=== PATIENT | male | born 1955 | race Caucasian/White ===

== ENCOUNTER 2019-05-11 06:35 | Day surgery (SDC) | payer BC ==
[~2019-05-11 06:35] MED LIST: Lactated Ringers 1,000 ML IV SCH; Sodium Chloride 0.9% 10 ML SDV IV PRN; Sodium Chloride 0.9% 10 ML Syringe FLUSH PRN; Sodium Chloride 0.9% 2.5 ML Syringe FLUSH PRN; ceFAZolin 2 GM in Premix Bag 1 BAG IV ONE
[2019-05-11] MEDS ORDERED: Propofol 200 MG/20 ML SDV ONE (06:58)
[2019-05-11] MEDS ORDERED: Midazolam 1 MG/ML 2 ML SDV ONE (06:59)
[2019-05-11] MEDS ORDERED: fentaNYL 250 MCG/5 ML SDV ONE (06:59)
[2019-05-11] MEDS ORDERED: Rocuronium 100 MG/10 ML Syringe ONE (07:00)
[2019-05-11] MEDS ORDERED: Ketorolac 30 MG/ML SDV ONE (07:00)
[2019-05-11] MEDS ORDERED: Dexamethasone 4 MG/ML 5 ML MDV ONE (07:00)
[2019-05-11] MEDS ORDERED: Ondansetron 4 MG/2 ML SDV ONE (07:00)
[2019-05-11] MEDS ORDERED: Glycopyrrolate 0.2 MG/ML SDV ONE (07:00)
[2019-05-11] MEDS ORDERED: Lidocaine 2% 5 ML SDV ONE (07:00)
[2019-05-11] MEDS ORDERED: Sugammadex Sodium 200 MG/2 ML VIAL ONE (07:01)
--- NOTE | 2019-05-11 07:06 | PCM.PREANE ---
Preanesthetic Assessment - Anesthesia/Transfusion/Family Hx Anesthesia History: Prior Anesthesia Without Reaction Other Type of Anesthesia Reaction Comment: Denies any known problems Family History of Anesthesia Reaction: No Transfusion History: No Prior Transfusion(s) Intubation History: Unknown - Review of Systems General: No Symptoms Pulmonary: No Symptoms Cardiovascular: No Symptoms Gastrointestinal: No Symptoms Neurological: No Symptoms Other: Reports: None - Physical Assessment Height: 6 ft Weight: 107.955 kg ASA Class: 2 Mental Status: Alert & Oriented x3 Airway Class: Mallampati = 2 Dentition: Reports: Normal Dentition (small chip upper front incisor) Thyro-Mental Finger Breadths: 3 Mouth Opening Finger Breadths: 3 ROM/Head Extension: Limited/Partial Lungs: Clear to Auscultation, Normal Respiratory Effort Cardiovascular: Regular Rate, Regular Rhythm - Allergies Allergies/Adverse Reactions: Allergies Allergy/AdvReac Type Severity Reaction Status Date / Time oxycodone Allergy Nausea and Verified 05/05/19 11:36 Vomiting - Blood Blood Available: No - Anesthesia Plan Pre-Op Medication Ordered: None - Acknowledgements Anesthesia Type Planned: General Anesthesia Pt an Appropriate Candidate for the Planned Anesthesia: Yes Alternatives and Risks of Anesthesia Discussed w Pt/Guardian: Yes Pt/Guardian Understands and Agrees with Anesthesia Plan: Yes PreAnesthesia Questionnaire Cardiovascular History: Reports: High Cholesterol Neurological History: Reports: Concussion Endocrine/Metabolic History: Reports: Obesity/BMI 30+ Oncologic (Cancer) History: Reports: Basal Cell Carcinoma - Past Surgical History Head Surgeries/Procedures: Reports: None Male Surgical History: Reports: Vasectomy Musculoskeletal Surgical History: Reports: Arthroscopic Knee, Knee Replacement ( rt. knee 2011), Shoulder Surgery Other Musculoskeletal Surgeries/Procedures:: right TKA, hx of left RTCR Oncologic Surgical History: Reports: Other (See Below) Other Oncologic Surgeries/Procedures: basal cell removed from face Dermatological Surgical History: Reports: Skin Biopsy - SUBSTANCE USE Smoking Status *Q: Never Smoker Recreational Drug Use History: No - HOME MEDS Home Medications: Home Meds Simvastatin [Zocor] 40 mg PO BEDTIME 11/30/13 [History] - CURRENT (IN HOUSE) MEDS Current Meds: Current Medications Lactated Ringer's (Ringers, Lactated) 1,000 mls @ 125 mls/hr IV ASDIRECTED SADA Sodium Chloride (Saline Flush) 10 ml FLUSH ASDIRECTED PRN PRN Reason: Keep Vein Open Sodium Chloride (Saline Flush) 2.5 ml FLUSH ASDIRECTED PRN PRN Reason: Keep Vein Open Sodium Chloride (Normal Saline) 10 ml IV ASDIRECTED PRN PRN Reason: IV Use Discontinued Medications Fentanyl (Sublimaze) Confirm Administered Dose 250 mcg .ROUTE .STK-MED ONE Stop: 05/11/19 07:00 Cefazolin Sodium/Dextrose 2 gm (/ Premix) 50 mls @ 100 mls/hr IV ONETIME ONE Stop: 05/10/19 11:17 Midazolam HCl (Versed 1 Mg/Ml) Confirm Administered Dose 2 mg .ROUTE .STK-MED ONE Stop: 05/11/19 07:00 Propofol (Diprivan 20 Ml) Confirm Administered Dose 200 mg .ROUTE .STK-MED ONE Stop: 05/11/19 06:59
[2019-05-11] MEDS ORDERED: Bupivacaine 0.5% 30 ML SDV ONE (07:20)
[2019-05-11] MEDS ORDERED: Sodium Chloride 0.9% 20 ML ONE (08:07)
[2019-05-11] MEDS ORDERED: ceFAZolin 1 GM Vial ONE (08:07)
[2019-05-11] MEDS ORDERED: Phenylephrine/Normal Saline 100 MCG/ML 10 ML Syringe ONE (08:13)
[2019-05-11] MEDS ORDERED: Octyl 2-Cyanoacrylate 1 Tube ONE (08:30)
--- NOTE | 2019-05-11 08:52 | PCM.OPNOTE ---
- General Post-Op/Procedure Note Date of Surgery/Procedure: 05/11/19 Operative Procedure(s): Umbilical hernia repair Findings: 2mm defect just to the left of the umbilical stalk Pre Op Diagnosis: Umbilical hernia, incarcerated Post-Op Diagnosis: same Anesthesia Technique: MAC Primary Surgeon: Sharon Becerra Fluid Replacement, Intraop: 700 Condition: Good
--- NOTE | 2019-05-11 09:06 | PCM.POSTAN ---
POST ANESTHESIA ASSESSMENT - MENTAL STATUS Mental Status: Alert, Oriented - VITAL SIGNS Vital Signs: Last Vital Signs Temp 37.5 C 05/11/19 08:50 Pulse 84 05/11/19 09:00 Resp 11 L 05/11/19 09:00 BP 111/74 05/11/19 09:00 Pulse Ox 90 L 05/11/19 09:00 - RESPIRATORY Respiratory Status: Respiratory Rate WNL, Airway Patent, O2 Saturation Stable - CARDIOVASCULAR CV Status: Pulse Rate WNL, Blood Pressure Stable - GASTROINTESTINAL GI Status: No Symptoms - POST OP HYDRATION Hydration Status: Adequate & Stable
--- NOTE | 2019-05-11 09:51 | PCM48HPAN ---
Post Anesthesia Note - EVALUATION WITHIN 48HRS OF ANESTHETIC Vital Signs in Normal Range: Yes Patient Participated in Evaluation: Yes Respiratory Function Stable: Yes Airway Patent: Yes Cardiovascular Function Stable: Yes Hydration Status Stable: Yes Pain Control Satisfactory: Yes Nausea and Vomiting Control Satisfactory: Yes Mental Status Recovered: Yes Vital Signs: Last Vital Signs Temp 37.5 C 05/11/19 08:50 Pulse 81 05/11/19 09:25 Resp 14 05/11/19 09:25 BP 111/68 05/11/19 09:25 Pulse Ox 90 L 05/11/19 09:25 - COMMENTS/OBSERVATIONS Free Text/Narrative:: No anesthesia problems
--- NOTE | 2019-05-11 18:45 | OR ---
SURGEON: SHARON BECERRA MD DATE OF PROCEDURE: 05/11/2019 PREOPERATIVE DIAGNOSIS: Umbilical hernia, incarcerated. POSTOPERATIVE DIAGNOSIS: Umbilical hernia, incarcerated. PROCEDURE PERFORMED: Umbilical hernia repair. PRIMARY SURGEON: Sharon Becerra MD. ANESTHESIA: General endotracheal anesthesia. FLUIDS: 700 mL crystalloid. ESTIMATED BLOOD LOSS: 2 mL. FINDINGS: 2 cm periumbilical fascial defect containing incarcerated preperitoneal fat. COMPLICATIONS: None. INDICATIONS: The patient is a 64-year-old male with a symptomatic umbilical hernia. I explained the need for repair. I described the procedure, expected perioperative course, and risks including bleeding, infection, or damage to surrounding structures. The patient verbalized understanding and wishes to proceed. PROCEDURE IN DETAIL: The patient was brought into the OR and placed on the OR table in supine position. A time-out was completed verifying the patient's name, age, date of , allergies, and procedure to be performed. General endotracheal anesthesia was induced. The abdomen was prepped and draped in usual standard fashion. I anesthetized around the umbilicus with 0.5% Marcaine plain. A circular incision was made along the left lateral umbilical fold using a 15 blade. Cautery was then used to dissect down to the level of the subcutaneous fat. I immediately encountered a small hernia sac just to the left of the umbilical stalk. This was dissected free of the surrounding structures using electrocautery. It was cleared all the way down to the fascia. The fascial defect was extremely small measured only 2 mm in size. I attempted to reduce the preperitoneal fat back into the abdomen but was unable to do so. I then transected the hernia sac and its contents at the level of the fascia using cautery. It was passed off the field and labeled as umbilical hernia sac. The fascial defect was then closed with a [id number] Ethibond suture. I then explored around the umbilical stalk to ensure that there was no further evidence of hernia defect. None was discovered. While using cautery, a small 1mm rent was made through the umbilical skin. This was closed on the underside of the skin using an interrupted 3-0 Vicryl suture. The subcutaneous fat layer was then closed using interrupted 3-0 Vicryl sutures after ensuring that hemostasis was achieved. The skin was then closed with a running 4-0 Monocryl stitch. Dermabond and sterile dressings were applied. The patient tolerated the procedure well and was transferred to the PACU in stable condition. CORONA ROBLEDO /[id number] MTDD
== END 2019-05-11 10:05 | disposition home or self-care (01) ==
LOC: MW.SDS 06:35
PROVIDERS: ATTEND Surgery
DX: K42.0 Umbilical hernia with obstruction, without gangrene (principal); E78.00 Pure hypercholesterolemia, unspecified; E78.5 Hyperlipidemia, unspecified; E66.9 Obesity, unspecified; Z80.0 Family history of malignant neoplasm of digestive organs; Z88.5 Allergy status to narcotic agent; Z79.899 Other long term (current) drug therapy; Z68.32 Body mass index [BMI] 32.0-32.9, adult
CPT/HCPCS: 49587; A9270; J0690; J1100; J1885; J2001; J2250; J2370; J2405; J2704; J3010; J3490; J7120

== ENCOUNTER 2020-01-13 08:00 | Day surgery (SDC) | payer BC ==
[~2020-01-13 08:00] MED LIST changes: +Lidocaine 2% 5 ML SDV ONE; +Propofol 200 MG/20 ML SDV ONE; -ceFAZolin 2 GM in Premix Bag 1 BAG IV ONE; +fentaNYL 100 MCG/2 ML SDV ONE
--- NOTE | 2020-01-13 08:52 | PCM.PREANE ---
Preanesthetic Assessment - Anesthesia/Transfusion/Family Hx Anesthesia History: Prior Anesthesia Without Reaction Other Type of Anesthesia Reaction Comment: Denies any known problems Family History of Anesthesia Reaction: No Transfusion History: No Prior Transfusion(s) Intubation History: Unknown - Review of Systems General: No Symptoms Pulmonary: No Symptoms Cardiovascular: No Symptoms Gastrointestinal: No Symptoms Neurological: No Symptoms Other: Reports: None - Physical Assessment NPO Status Date: 01/13/20 NPO Status Time: 04:00 Vital Signs: Last Vital Signs Temp 97.2 F 01/13/20 08:08 Pulse 92 01/13/20 08:08 Resp 16 01/13/20 08:08 BP 132/94 H 01/13/20 08:08 Pulse Ox 93 L 01/13/20 08:08 Height: 6 ft Weight: 106.594 kg ASA Class: 2 Mental Status: Alert & Oriented x3 Airway Class: Mallampati = 1 Dentition: Reports: Normal Dentition ROM/Head Extension: Full Lungs: Clear to Auscultation, Normal Respiratory Effort Cardiovascular: Regular Rate, Regular Rhythm - Allergies Allergies/Adverse Reactions: Allergies Allergy/AdvReac Type Severity Reaction Status Date / Time oxycodone Allergy Itching Verified 01/07/20 10:09 - Blood Blood Available: No - Anesthesia Plan Pre-Op Medication Ordered: None - Acknowledgements Anesthesia Type Planned: General Anesthesia (tiva) Pt an Appropriate Candidate for the Planned Anesthesia: Yes Alternatives and Risks of Anesthesia Discussed w Pt/Guardian: Yes Pt/Guardian Understands and Agrees with Anesthesia Plan: Yes Additional Comments: PMH: asymptomatic adrenal adenomas-being followed, hld PLAN: tiva PreAnesthesia Questionnaire HEENT History: Reports: None Cardiovascular History: Reports: High Cholesterol Respiratory History: Reports: None Gastrointestinal History: Reports: Colon Polyp Genitourinary History: Reports: None Musculoskeletal History: Reports: Osteoarthritis Neurological History: Reports: None Psychiatric History: Reports: None Endocrine/Metabolic History: Reports: Obesity/BMI 30+ Hematologic History: Reports: None Immunologic History: Reports: None Oncologic (Cancer) History: Reports: Basal Cell Carcinoma Dermatologic History: Reports: None - Past Surgical History Head Surgeries/Procedures: Reports: None HEENT Surgical History: Reports: None Cardiovascular Surgical History: Reports: None Respiratory Surgical History: Reports: None GI Surgical History: Reports: Colonoscopy, Hernia, Abdominal Male Surgical History: Reports: Vasectomy Endocrine Surgical History: Reports: None Neurological Surgical History: Reports: None Musculoskeletal Surgical History: Reports: Arthroscopic Knee, Knee Replacement, Shoulder Surgery Other Musculoskeletal Surgeries/Procedures:: right TKA, hx of left RTCR Oncologic Surgical History: Reports: Other (See Below) Other Oncologic Surgeries/Procedures: basal cell removed from face Dermatological Surgical History: Reports: Skin Biopsy - SUBSTANCE USE Smoking Status *Q: Never Smoker Recreational Drug Use History: No - HOME MEDS Home Medications: Home Meds Simvastatin [Zocor] 40 mg PO BEDTIME 11/30/13 [History] - CURRENT (IN HOUSE) MEDS Current Meds: Current Medications Lactated Ringer's (Ringers, Lactated) 1,000 mls @ 125 mls/hr IV ASDIRECTED SADA Last Admin: 01/13/20 08:25 Dose: 125 mls/hr Documented by: Sodium Chloride (Saline Flush) 10 ml FLUSH ASDIRECTED PRN PRN Reason: Keep Vein Open Sodium Chloride (Saline Flush) 2.5 ml FLUSH ASDIRECTED PRN PRN Reason: Keep Vein Open Sodium Chloride (Saline Flush) 10 ml FLUSH ASDIRECTED PRN PRN Reason: Keep Vein Open Sodium Chloride (Saline Flush) 2.5 ml FLUSH ASDIRECTED PRN PRN Reason: Keep Vein Open Sodium Chloride (Normal Saline) 10 ml IV ASDIRECTED PRN PRN Reason: IV Use Discontinued Medications Fentanyl (Sublimaze) Confirm Administered Dose 100 mcg .ROUTE .STK-MED ONE Stop: 01/13/20 07:01 Lidocaine (Xylocaine-Mpf 2%) Confirm Administered Dose 5 ml .ROUTE .STK-MED ONE Stop: 01/13/20 07:00 Propofol (Diprivan 20 Ml) Confirm Administered Dose 400 mg .ROUTE .STK-MED ONE Stop: 01/13/20 07:01
[2020-01-13] MEDS ORDERED: Glycopyrrolate 0.2 MG/ML SDV ONE (09:22)
[2020-01-13] MEDS ORDERED: Propofol 200 MG/20 ML SDV ONE (09:41)
--- NOTE | 2020-01-13 10:39 | PCM.POSTAN ---
POST ANESTHESIA ASSESSMENT - MENTAL STATUS Mental Status: Alert, Oriented - VITAL SIGNS Vital Signs: Last Vital Signs Temp 97.7 F 01/13/20 10:16 Pulse 80 01/13/20 10:16 Resp 14 01/13/20 10:16 BP 118/77 01/13/20 10:16 Pulse Ox 93 L 01/13/20 10:16 - RESPIRATORY Respiratory Status: Respiratory Rate WNL, Airway Patent, O2 Saturation Stable - CARDIOVASCULAR CV Status: Pulse Rate WNL, Blood Pressure Stable - GASTROINTESTINAL GI Status: No Symptoms - POST OP HYDRATION Hydration Status: Adequate & Stable
--- NOTE | 2020-01-13 10:39 | PCM48HPAN ---
Post Anesthesia Note - EVALUATION WITHIN 48HRS OF ANESTHETIC Vital Signs in Normal Range: Yes Patient Participated in Evaluation: Yes Respiratory Function Stable: Yes Airway Patent: Yes Cardiovascular Function Stable: Yes Hydration Status Stable: Yes Pain Control Satisfactory: Yes Nausea and Vomiting Control Satisfactory: Yes Mental Status Recovered: Yes Vital Signs: Last Vital Signs Temp 97.7 F 01/13/20 10:16 Pulse 80 01/13/20 10:16 Resp 14 01/13/20 10:16 BP 118/77 01/13/20 10:16 Pulse Ox 93 L 01/13/20 10:16
--- NOTE | 2020-01-13 13:51 | PCM.OPNOTE ---
- General Post-Op/Procedure Note Date of Surgery/Procedure: 01/13/20 Operative Procedure(s): Diagnostic colonoscopy with polypectomy Findings: Diverticulosis, transverse colon polyp x 4, rectal polyp Pre Op Diagnosis: History of colon polyps Post-Op Diagnosis: Transverse colon polyp x 4, rectal polyp, diverticulosis Anesthesia Technique: [facility] [place] Surgeon: Sharon Becerra Condition: Stable Free Text/Narrative:: Intake & Output 01/12/20 01/13/20 01/13/20 22:59 06:59 14:59 Intake Total 1375 Balance 1375
--- NOTE | 2020-01-14 17:15 | OR ---
SURGEON: SHARON BECERRA MD DATE OF PROCEDURE: 01/13/2020 PREOPERATIVE DIAGNOSIS: History of colon polyps. POSTOPERATIVE DIAGNOSES: 1. Diverticulosis. 2. Rectal polyp. 3. Transverse colon polyp x4. PROCEDURE PERFORMED: Diagnostic colonoscopy with polypectomy. PRIMARY SURGEON: Sharon Becerra MD ANESTHESIA: MAC. INSTRUMENT USED: Olympus colonoscope. EXTENT OF EXAM: To the cecum. PREPARATION: Good. LIMITATIONS: None. INDICATIONS FOR EXAMINATION: The patient is a 64-year-old male who presents for followup colonoscopy after being diagnosed with colon polyps during his last one. We discussed the procedure, expected perioperative course, and risks. He verbalized understanding and wishes to proceed. PROCEDURE IN DETAIL: The patient was brought into the endoscopy suite and placed in the left lateral decubitus position. A time-out was completed verifying the patient's name, age, date of , allergies, and procedure to be performed. Monitored anesthesia care was induced and continuous oxygen was provided via nasal cannula throughout the procedure. After adequate sedation was achieved, a digital rectal exam was performed. This exam was within normal limits. A well-lubricated colonoscope was inserted in the rectum and advanced under direct visualization to the level of the cecum. The cecum was identified by both visual and anatomic landmarks. A photograph was taken of the cecal cap as well as with the scope retroflexed within the cecum. The scope was then fully withdrawn while examining the color, texture, anatomy, and integrity of the mucosa from the cecum to the anal canal. The patient was found to have four polyps throughout the transverse colon. The fourth transverse colon polyp was large and sessile. It took multiple bites with the cold biopsy forceps to remove this. A small amount of saline lift was used as well. After close inspection, I appeared to have gotten all of the tissue. The area was inked with 1 mL of carbon-based ink for identification in the future. It was at 50 cm. The patient was noted to have a rectal polyp. This was removed in piecemeal fashion using cold biopsy forceps. The patient was also noted to have diverticulosis throughout the sigmoid colon. The scope was retroflexed within the rectum to allow visualization of the anal canal opening. This appeared normal and a photograph was taken. The scope was then straightened out and fully withdrawn. The cecum to anus time was 23 minutes. The patient tolerated the procedure well and was transferred to the PACU in stable condition. ENDOSCOPIC DIAGNOSES: 1. Diverticulosis. 2. Rectal polyp. 3. Transverse colon polyp x4. RECOMMENDATIONS: Follow up in clinic in 2 weeks. CORONA ROBLEDO /[id number]
== END 2020-01-13 10:40 | disposition home or self-care (01) ==
LOC: MW.SDS 08:00
PROVIDERS: ATTEND Surgery
DX: Z12.11 Encounter for screening for malignant neoplasm of colon (principal); D12.3 Benign neoplasm of transverse colon; D12.8 Benign neoplasm of rectum; K57.30 Diverticulosis of large intestine without perforation or abscess without bleeding; F32.9 Major depressive disorder, single episode, unspecified; E78.00 Pure hypercholesterolemia, unspecified; E66.9 Obesity, unspecified; Z88.6 Allergy status to analgesic agent; Z79.899 Other long term (current) drug therapy; Z86.010 Personal history of colon polyps; Z68.31 Body mass index [BMI] 31.0-31.9, adult; Z80.0 Family history of malignant neoplasm of digestive organs; Z98.890 Other specified postprocedural states
CPT/HCPCS: 45380; 45381; J2001; J2704; J3010; J7120; 00811; J3490

== ENCOUNTER 2020-05-09 07:48 | Day surgery (SDC) | payer BC, OTHER ==
[~2020-05-09 07:48] MED LIST changes: -Lidocaine 2% 5 ML SDV ONE; -Propofol 200 MG/20 ML SDV ONE; -fentaNYL 100 MCG/2 ML SDV ONE
[2020-05-09] MEDS ORDERED: Bupivacaine 0.5% 30 ML SDV ONE (07:52)
[2020-05-09] MEDS ORDERED: ceFAZolin 2 GM in Premix Bag 1 BAG IV ONE (08:00)
--- NOTE | 2020-05-09 08:41 | PCM.PREANE ---
Preanesthetic Assessment - Anesthesia/Transfusion/Family Hx Anesthesia History: Prior Anesthesia Without Reaction Other Type of Anesthesia Reaction Comment: Denies any known problems Family History of Anesthesia Reaction: No Transfusion History: No Prior Transfusion(s) Intubation History: Unknown - Review of Systems General: No Symptoms Pulmonary: No Symptoms Cardiovascular: No Symptoms Gastrointestinal: No Symptoms Neurological: No Symptoms Other: Reports: None - Physical Assessment NPO Status Date: 05/08/20 Height: 6 ft 1 in Weight: 107.955 kg ASA Class: 1 Mental Status: Alert & Oriented x3 Airway Class: Mallampati = 2 Dentition: Reports: Normal Dentition ROM/Head Extension: Full Lungs: Clear to Auscultation, Normal Respiratory Effort Cardiovascular: Regular Rate, Regular Rhythm - Allergies Allergies/Adverse Reactions: Allergies Allergy/AdvReac Type Severity Reaction Status Date / Time oxycodone Allergy Itching Verified 05/03/20 08:46 - Blood Blood Available: No - Anesthesia Plan Pre-Op Medication Ordered: None - Acknowledgements Anesthesia Type Planned: General Anesthesia Pt an Appropriate Candidate for the Planned Anesthesia: Yes Alternatives and Risks of Anesthesia Discussed w Pt/Guardian: Yes Pt/Guardian Understands and Agrees with Anesthesia Plan: Yes PreAnesthesia Questionnaire HEENT History: Reports: None Cardiovascular History: Reports: High Cholesterol Respiratory History: Reports: None Gastrointestinal History: Reports: Colon Polyp Other Gastrointestinal History: states has occasional heartburn Genitourinary History: Reports: None Musculoskeletal History: Reports: Osteoarthritis Other Musculoskeletal History: hands Neurological History: Reports: None Psychiatric History: Reports: None Endocrine/Metabolic History: Reports: Obesity/BMI 30+ Hematologic History: Reports: None Immunologic History: Reports: None Oncologic (Cancer) History: Reports: Basal Cell Carcinoma Dermatologic History: Reports: None - Infectious Disease History Infectious Disease History: Reports: Chicken Pox, Measles Other Infectious Disease History: when a child - Past Surgical History GI Surgical History: Reports: Colonoscopy, Hernia, Abdominal - SUBSTANCE USE Tobacco Use Status *Q: Never Tobacco User - HOME MEDS Home Medications: Home Meds Simvastatin [Zocor] 40 mg PO BEDTIME 11/30/13 [History] - CURRENT (IN HOUSE) MEDS Current Meds: Current Medications Lactated Ringer's (Ringers, Lactated) 1,000 mls @ 125 mls/hr IV ASDIRECTED SADA Sodium Chloride (Saline Flush) 2.5 ml FLUSH ASDIRECTED PRN PRN Reason: Keep Vein Open Sodium Chloride (Normal Saline) 10 ml IV ASDIRECTED PRN PRN Reason: IV Use Sodium Chloride (Saline Flush) 10 ml FLUSH ASDIRECTED PRN PRN Reason: Keep Vein Open Discontinued Medications Bupivacaine HCl (Marcaine 0.5%) Confirm Administered Dose 30 ml .ROUTE .STK-MED ONE Stop: 05/09/20 07:53 Cefazolin Sodium/Dextrose 2 gm (/ Premix) 50 mls @ 100 mls/hr IV ONETIME ONE Stop: 05/09/20 08:29
[2020-05-09] MEDS ORDERED: Lidocaine 2% 5 ML SDV ONE (08:48)
[2020-05-09] MEDS ORDERED: fentaNYL 250 MCG/5 ML SDV ONE (08:48)
[2020-05-09] MEDS ORDERED: Propofol 200 MG/20 ML SDV ONE (08:48)
[2020-05-09] MEDS ORDERED: Midazolam 1 MG/ML 2 ML SDV ONE (08:48)
[2020-05-09] MEDS ORDERED: Ondansetron 4 MG/2 ML SDV ONE (08:48)
[2020-05-09] MEDS ORDERED: Octyl 2-Cyanoacrylate 1 Tube ONE (08:50)
[2020-05-09] MEDS ORDERED: ceFAZolin 1 GM Vial ONE ×2 (09:04→10:05)
[2020-05-09] MEDS ORDERED: Sodium Chloride 0.9% 20 ML ONE (09:04)
[2020-05-09] MEDS ORDERED: 50% Dextrose in Water 50 ML Syringe IVPUSH PRN (09:20)
[2020-05-09] MEDS ORDERED: Naloxone 0.4 MG/ML Syringe IVPUSH PRN (09:20)
[2020-05-09] MEDS ORDERED: fentaNYL 100 MCG/2 ML SDV IVPUSH PRN (09:20)
[2020-05-09] MEDS ORDERED: Albuterol 0.083% 2.5 MG/3 ML Neb Soln NEB PRN (09:20)
[2020-05-09] MEDS ORDERED: Atropine 0.1 MG/ML 10 ML Syringe IVPUSH PRN ×2 (09:20)
[2020-05-09] MEDS ORDERED: EPINEPHrine 1:10,000 1 MG/10 ML Syringe IVPUSH PRN (09:20)
[2020-05-09] MEDS ORDERED: Glycopyrrolate 0.2 MG/ML SDV ONE ×2 (10:27→10:51)
[2020-05-09] MEDS ORDERED: Rocuronium Bromide 50 MG/5 ML Syringe ONE (10:27)
[2020-05-09] MEDS ORDERED: ePHEDrine 50 MG/ML SDV ONE (10:27)
[2020-05-09] MEDS ORDERED: Dexamethasone 4 MG/ML 5 ML MDV ONE (10:27)
[2020-05-09] MEDS ORDERED: Ketorolac 30 MG/ML SDV ONE (10:27)
[2020-05-09] MEDS ORDERED: Acetaminophen/HYDROcodone 325-5 MG Tab PO PRN (11:54)
[2020-05-09] MEDS ORDERED: Cyclobenzaprine 5 MG Tab PO PRN (11:55)
[2020-05-09] MEDS ORDERED: HYDROmorphone 1 MG/ML Syringe IVPUSH ONE (12:07)
[2020-05-09] MEDS ORDERED: HYDROmorphone 2 MG/ML Syringe ONE (12:12)
--- NOTE | 2020-05-09 12:14 | PCM.OPNOTE ---
- General Post-Op/Procedure Note Date of Surgery/Procedure: 05/09/20 Operative Procedure(s): Umbilical herniar repair with mesh Findings: Recurrent umbilical hernia and small connecting supra-umbilical hernia Pre Op Diagnosis: Recurrent umbilical hernia and supraumbilical hernia Post-Op Diagnosis: same Anesthesia Technique: General ET Tube, General LMA Primary Surgeon: Sharon Becerra Fluid Replacement, Intraop: 1,500 EBL in mLs: 5 Condition: Good Free Text/Narrative:: Intake & Output 05/08/20 05/09/20 05/09/20 22:59 06:59 14:59 Intake Total 1500 Balance 1500
--- NOTE | 2020-05-09 13:14 | PCM.POSTAN ---
POST ANESTHESIA ASSESSMENT - MENTAL STATUS Mental Status: Alert, Oriented - VITAL SIGNS Vital Signs: Last Vital Signs Temp 98.2 F 05/09/20 10:58 Pulse 83 05/09/20 11:34 Resp 10 L 05/09/20 11:34 BP 125/74 05/09/20 11:34 Pulse Ox 94 L 05/09/20 11:34 - RESPIRATORY Respiratory Status: Respiratory Rate WNL, Airway Patent, O2 Saturation Stable - CARDIOVASCULAR CV Status: Pulse Rate WNL, Blood Pressure Stable - GASTROINTESTINAL GI Status: No Symptoms - POST OP HYDRATION Hydration Status: Adequate & Stable
--- NOTE | 2020-05-09 13:58 | OR ---
SURGEON: SHARON BECERRA MD DATE OF PROCEDURE: 05/09/2020 PREOPERATIVE DIAGNOSIS: Recurrent umbilical hernia. POSTOPERATIVE DIAGNOSES: 1. Recurrent umbilical hernia. 2. Supraumbilical hernia. PROCEDURE PERFORMED: Repair of umbilical and supraumbilical hernia with mesh. PRIMARY SURGEON: Sharon Becerra MD ANESTHESIA: General LMA converted to general endotracheal anesthesia. FLUIDS: 1500 mL of crystalloid. ESTIMATED BLOOD LOSS: 5 mL. FINDINGS: 1 cm supraumbilical hernia containing incarcerated fat. Recurrent umbilical hernia containing fat. COMPLICATIONS: None. INDICATIONS: The patient is a 55-year-old male who presents to clinic with increasing discomfort around his supraumbilical area. The patient had seen me previously for an umbilical hernia. This was repaired with sutures. A CT scan was performed to the abdomen which showed a small recurrence. The patient was told to keep an eye on things, however, he was becoming more symptomatic and he feels the hernia is getting bigger. The decision was made to proceed to the operating room to repair this hernia defect. On review of his CT imaging, the patient appeared to have 2 very small defects quite close to one another. I consented the patient for hernia repair with or without mesh. I explained that depending on the integrity of the fascia as well as the size of the hernia defect, I would either repair this with sutures alone or place a piece of mesh to repair the hernia. The patient and I discussed the risks including bleeding, infection, or damage to surrounding structures. He verbalized understanding and wished to proceed. PROCEDURE IN DETAIL: The patient was brought to the OR and placed on the OR table in supine position. A time-out was completed verifying the patient's name, age, date of , allergies, and procedure to be performed. General LMA anesthesia was induced. The abdomen was prepped and draped in usual standard fashion. I anesthetized the umbilical area with 0.5% Marcaine plain. A 15-blade was used to open up the patient's previous incision along the left lateral umbilical fold. This was carried up along the supraumbilical midline. Cautery was used to dissect down the level of subcutaneous fat. Along the supraumbilical midline, I encountered a hernia sac. This was dissected free from the surrounding tissue using a combination of electrocautery and sharp dissection. The hernia sac itself was 2 cm x 2 cm x 2 cm in size and tracked down to a fascial defect which measured 1 cm in size. I cleared away all the tissue surrounding the hernia sac and the fascial defect. I then transected the hernia sac and the fat inside it using electrocautery. Again, the hernia defect measured 1 cm in size. When I palpated along the surrounding tissue, I could feel a defect along the area of my previous repair. Using a hemostat, I explored this from the underside of the fascia. I could clearly feel a hernia defect. I then started clearing away the tissue around my umbilical stalk. When I did this, I discovered that the tissue around the umbilical stalk was actually a recurrent umbilical hernia. I entered the hernia sac and discovered another 1 cm hernia defect. The supraumbilical hernia defect and the recurrent umbilical hernia defect were by a thin piece of fascia. The decision was made to connect these and repair this area with mesh. The surrounding fascia was thin and I did not feel that it would lend itself well to another primary repair. The combined defect measured 2 x 2.2 cm in size. A 4.3 cm piece of round Ventralex mesh was brought into the field. I placed the mesh into the abdomen and secured it at the 12 o'clock, 3 o'clock, 6 o'clock, and 9 o'clock positions using interrupted 0 Ethibond sutures. I also secured it at the 10 o'clock and 8 o'clock positions as the mesh kept trying to roll along the right side. A Valsalva maneuver was performed and the hernia repair appeared to be intact. I irrigated the area with a normal saline Ancef solution. I then closed the fascia over the mesh using interrupted 0 Ethibond sutures. I then secured the umbilical skin down to the fascia using interrupted 0 Ethibond sutures. The subcutaneous fat layer was closed with layers of interrupted 3-0 Vicryl suture and the skin was closed with a running 4-0 Monocryl stitch. Dermabond and sterile dressings were applied. The patient tolerated the procedure well and was taken to PACU in stable condition. CORONA ROBELDO /[id number]
--- NOTE | 2020-05-09 15:28 | PCM48HPAN ---
Post Anesthesia Note - EVALUATION WITHIN 48HRS OF ANESTHETIC Vital Signs in Normal Range: Yes Patient Participated in Evaluation: Yes Respiratory Function Stable: Yes Airway Patent: Yes Cardiovascular Function Stable: Yes Hydration Status Stable: Yes Pain Control Satisfactory: Yes Nausea and Vomiting Control Satisfactory: Yes Mental Status Recovered: Yes Vital Signs: Last Vital Signs Temp 98.2 F 05/09/20 10:58 Pulse 83 05/09/20 11:34 Resp 10 L 05/09/20 11:34 BP 125/74 05/09/20 11:34 Pulse Ox 94 L 05/09/20 11:34
== END 2020-05-09 15:25 | disposition home or self-care (01) ==
LOC: MW.SDS 07:48
PROVIDERS: ATTEND Surgery
DX: K42.0 Umbilical hernia with obstruction, without gangrene (principal); F32.9 Major depressive disorder, single episode, unspecified; E78.00 Pure hypercholesterolemia, unspecified; E66.9 Obesity, unspecified; Z88.5 Allergy status to narcotic agent; Z79.899 Other long term (current) drug therapy; Z98.890 Other specified postprocedural states; Z68.31 Body mass index [BMI] 31.0-31.9, adult
CPT/HCPCS: 49587; A9270; C1781; J0690; J1100; J1170; J1885; J2001; J2250; J2405; J2704; J3010; J3490; J7120; 00750; 88302

== ENCOUNTER 2020-05-24 19:39 | Emergency (ER) | payer BC ==
[2020-05-24] MEDS ORDERED: Sodium Chloride 0.9% 2.5 ML Syringe FLUSH PRN (19:52)
[2020-05-24] MEDS ORDERED: Sodium Chloride 0.9% 10 ML Syringe FLUSH PRN (19:52)
--- NOTE | 2020-05-24 20:20 | EDM.PDOC ---
ED [facility] GENERAL MEDICAL PROBLEM - General Chief Complaint: Abdominal Pain Stated Complaint: RIBS AND BACK PAIN Time Seen by Provider: 05/24/20 19:49 Source of Information: Reports: Patient History Limitations: Reports: No Limitations - History of Present Illness INITIAL COMMENTS - FREE TEXT/NARRATIVE: 65-year-old male status post umbilical hernia repair on May [address] Jak aguirre presents with upper abdominal pain. Abdominal pain started about 1 week ago and waxes and wanes, described as sharp, localized to the upper abdomen, exacerbated with food, no alleviating factors. He has had 3 episodes of abdominal pain over the past week. He denies chest pain, fever, chills, vomiting, diarrhea. He admits to feeling nauseous and sweaty. ROS: A 10-point review of systems, other than pertinent positives and negatives as stated per HPI, is otherwise negative Past medical history: No additional pertinent history Past Surgical history: No additional pertinent history Social history: No additional pertinent history Family history: No additional pertinent history PHYSICAL EXAM General: AOx4, GCS = 15, moderate distress HEENT: dry mucous membrane Skin: clammy Neck: supple, no meningismus, no Kernig or Brudzinski Cardiac: S1S2 RRR Respiratory: CTAB, no crackles or rales, no wheezing Abdomen: Soft, mild upper abd ttp, no rebound or guarding, nondistended, no pulsatile mass. Back: nontender Musculoskeletal: NVI distally, no deformity Neuro: No focal deficits, CN 2 - 12 WNL. Upper abdominal pain Pain Score (Numeric/FACES): 5 - Related Data Allergies Allergy/AdvReac Type Severity Reaction Status Date / Time oxycodone Allergy Itching Verified 05/24/20 19:49 Home Meds: Home Meds Simvastatin [Zocor] 40 mg PO BEDTIME 11/30/13 [History] Cyclobenzaprine [Flexeril] 5 mg PO BID PRN #20 tablet 05/09/20 [Rx] Past Medical History HEENT History: Reports: None Cardiovascular History: Reports: High Cholesterol Respiratory History: Reports: None Gastrointestinal History: Reports: Colon Polyp Other Gastrointestinal History: states has occasional heartburn Genitourinary History: Reports: None Musculoskeletal History: Reports: Osteoarthritis Other Musculoskeletal History: hands Neurological History: Reports: None Psychiatric History: Reports: None Endocrine/Metabolic History: Reports: Obesity/BMI 30+ Hematologic History: Reports: None Immunologic History: Reports: None Oncologic (Cancer) History: Reports: Basal Cell Carcinoma Dermatologic History: Reports: None - Infectious Disease History Infectious Disease History: Reports: Chicken Pox, Measles Other Infectious Disease History: when a child - Past Surgical History Head Surgeries/Procedures: Reports: None HEENT Surgical History: Reports: None Cardiovascular Surgical History: Reports: None Respiratory Surgical History: Reports: None GI Surgical History: Reports: Colonoscopy Other GI Surgeries/Procedures: umbilical hernia Male Surgical History: Reports: Vasectomy Endocrine Surgical History: Reports: None Neurological Surgical History: Reports: None Musculoskeletal Surgical History: Reports: Arthroscopic Knee, Knee Replacement, Shoulder Surgery Other Musculoskeletal Surgeries/Procedures:: right TKA, hx of left RTCR Oncologic Surgical History: Reports: Other (See Below) Other Oncologic Surgeries/Procedures: basal cell removed from face Dermatological Surgical History: Reports: Skin Biopsy Social & Family History - Family History Family Medical History: No Pertinent Family History - Caffeine Use Caffeine Use: Reports: None - Recreational Drug Use Recreational Drug Use: No ED ROS GENERAL - Review of Systems Review Of Systems: See Below (see dictation) ED EXAM, GI/ABD - Physical Exam Exam: See Below (see dictation) #1 Interpretation EKG Interpretation Comments: Heart rate = 53 bpm, sinus bradycardia, normal QRS interval, no STEMI. EKG and rhythm strip interpreted by me at 2008 Course - Vital Signs Last Recorded V/S: Last Vital Signs Temp 97.8 F 05/24/20 19:50 Pulse 95 05/24/20 22:36 Resp 16 05/24/20 22:36 BP 135/87 05/24/20 22:36 Pulse Ox 98 05/24/20 22:36 - Orders/Labs/Meds Orders: Active Orders 24 hr Category Date Time Status Cardiac Monitoring [RC] . DIRECTED Care 05/24/20 19:52 Active EKG Documentation Completion [RC] STAT Care 05/24/20 19:53 Active Pulse Oximetry [RC] ASDIRECTED Care 05/24/20 19:52 Active Abdomen Pelvis wo Cont [CT] Stat Exams 05/24/20 20:29 Taken Sodium Chloride 0.9% [Saline Flush] Med 05/24/20 19:52 Active 10 ml FLUSH ASDIRECTED PRN Sodium Chloride 0.9% [Saline Flush] Med 05/24/20 19:52 Active 2.5 ml FLUSH ASDIRECTED PRN Saline Lock Insert [OM.PC] Stat Oth 05/24/20 19:52 Ordered Medication Orders Sodium Chloride (Saline Flush) 10 ml FLUSH ASDIRECTED PRN PRN Reason: Keep Vein Open Sodium Chloride (Saline Flush) 2.5 ml FLUSH ASDIRECTED PRN PRN Reason: Keep Vein Open Labs: Laboratory Tests 05/24/20 05/24/20 05/24/20 Range/Units 19:57 20:05 20:05 WBC 8.86 (4.0-11.0) K/uL RBC 5.75 (4.50-5.90) M/uL Hgb 16.3 (13.0-17.0) g/dL Hct 49.6 (38.0-50.0) % MCV 86.3 (80.0-98.0) fL MCH 28.3 (27.0-32.0) pg MCHC 32.9 (31.0-37.0) g/dL RDW Std Deviation 44.2 (28.0-62.0) fl RDW Coeff of Shasha 14 (11.0-15.0) % Plt Count 180 (150-400) K/uL MPV 11.30 (7.40-12.00) fL Neut % (Auto) 50.8 (48.0-80.0) % Lymph % (Auto) 35.6 (16.0-40.0) % Pacific % (Auto) 9.9 (0.0-15.0) % Eos % (Auto) 3.5 (0.0-7.0) % Baso % (Auto) 0.2 (0.0-1.5) % Neut # (Auto) 4.5 (1.4-5.7) K/uL Lymph # (Auto) 3.2 H (0.6-2.4) K/uL Pacific # (Auto) 0.9 H (0.0-0.8) K/uL Eos # (Auto) 0.3 (0.0-0.7) K/uL Baso # (Auto) 0.0 (0.0-0.1) K/uL Nucleated RBC % 0.0 /100WBC Nucleated RBCs # 0 K/uL INR 0.97 Lactate (0.20-2.00) mmol/L Sodium (136-148) mmol/L Potassium (3.5-5.1) mmol/L Chloride (98-107) mmol/L Carbon Dioxide (21.0-32.0) mmol/L BUN (7.0-18.0) mg/dL Creatinine (0.8-1.3) mg/dL Est Cr Clr Drug Dosing mL/min Estimated GFR (MDRD) ml/min Glucose (74-106) mg/dL Calcium (8.5-10.1) mg/dL Magnesium (1.8-2.4) mg/dL Total Bilirubin (0.2-1.0) mg/dL Direct Bilirubin (0.0-0.5) mg/dL Indirect Bilirubin AST (15-37) IU/L ALT (14-63) IU/L Alkaline Phosphatase (46-116) U/L Troponin I (0.000-0.056) ng/mL Total Protein (6.4-8.2) g/dL Albumin (3.4-5.0) g/dL Globulin (2.6-4.0) g/dL Albumin/Globulin Ratio (0.9-1.6) Lipase (73-393) U/L Urine Color YELLOW Urine Appearance SLT CLOUDY Urine pH 7.0 (5.0-8.0) Ur Specific Hixson 1.020 (1.001-1.035) Urine Protein NEGATIVE (NEGATIVE) mg/dL Urine Glucose (UA) NEGATIVE (NEGATIVE) mg/dL Urine Ketones NEGATIVE (NEGATIVE) mg/dL Urine Occult Blood NEGATIVE (NEGATIVE) Urine Nitrite NEGATIVE (NEGATIVE) Urine Bilirubin NEGATIVE (NEGATIVE) Urine Urobilinogen 1.0 (<2.0) EU/dL Ur Leukocyte Esterase NEGATIVE (NEGATIVE) SARS-CoV-2 RNA (DEIDRA) (NEGATIVE) 05/24/20 05/24/20 05/24/20 Range/Units 20:05 20:05 20:05 WBC (4.0-11.0) K/uL RBC (4.50-5.90) M/uL Hgb (13.0-17.0) g/dL Hct (38.0-50.0) % MCV (80.0-98.0) fL MCH (27.0-32.0) pg MCHC (31.0-37.0) g/dL RDW Std Deviation (28.0-62.0) fl RDW Coeff of Shasha (11.0-15.0) % Plt Count (150-400) K/uL MPV (7.40-12.00) fL Neut % (Auto) (48.0-80.0) % Lymph % (Auto) (16.0-40.0) % Pacific % (Auto) (0.0-15.0) % Eos % (Auto) (0.0-7.0) % Baso % (Auto) (0.0-1.5) % Neut # (Auto) (1.4-5.7) K/uL Lymph # (Auto) (0.6-2.4) K/uL Pacific # (Auto) (0.0-0.8) K/uL Eos # (Auto) (0.0-0.7) K/uL Baso # (Auto) (0.0-0.1) K/uL Nucleated RBC % /100WBC Nucleated RBCs # K/uL INR Lactate 2.1 H* (0.20-2.00) mmol/L Sodium 142 (136-148) mmol/L Potassium 3.7 (3.5-5.1) mmol/L Chloride 101 (98-107) mmol/L Carbon Dioxide 28.1 (21.0-32.0) mmol/L BUN 19 H (7.0-18.0) mg/dL Creatinine 1.3 (0.8-1.3) mg/dL Est Cr Clr Drug Dosing 65.73 mL/min Estimated GFR (MDRD) 55.8 ml/min Glucose 141 H (74-106) mg/dL Calcium 9.7 (8.5-10.1) mg/dL Magnesium 2.4 (1.8-2.4) mg/dL Total Bilirubin 1.6 H 1.6 H (0.2-1.0) mg/dL Direct Bilirubin 1.10 H (0.0-0.5) mg/dL Indirect Bilirubin 0.50 AST 153 H (15-37) IU/L ALT 424 H (14-63) IU/L Alkaline Phosphatase 239 H (46-116) U/L Troponin I < 0.050 (0.000-0.056) ng/mL Total Protein 7.7 (6.4-8.2) g/dL Albumin 3.7 (3.4-5.0) g/dL Globulin 4.0 (2.6-4.0) g/dL Albumin/Globulin Ratio 0.9 (0.9-1.6) Lipase 488 H (73-393) U/L Urine Color Urine Appearance Urine pH (5.0-8.0) Ur Specific Hixson (1.001-1.035) Urine Protein (NEGATIVE) mg/dL Urine Glucose (UA) (NEGATIVE) mg/dL Urine Ketones (NEGATIVE) mg/dL Urine Occult Blood (NEGATIVE) Urine Nitrite (NEGATIVE) Urine Bilirubin (NEGATIVE) Urine Urobilinogen (<2.0) EU/dL Ur Leukocyte Esterase (NEGATIVE) SARS-CoV-2 RNA (DEIDRA) (NEGATIVE) 05/24/20 Range/Units 21:45 WBC (4.0-11.0) K/uL RBC (4.50-5.90) M/uL Hgb (13.0-17.0) g/dL Hct (38.0-50.0) % MCV (80.0-98.0) fL MCH (27.0-32.0) pg MCHC (31.0-37.0) g/dL RDW Std Deviation (28.0-62.0) fl RDW Coeff of Shasha (11.0-15.0) % Plt Count (150-400) K/uL MPV (7.40-12.00) fL Neut % (Auto) (48.0-80.0) % Lymph % (Auto) (16.0-40.0) % Pacific % (Auto) (0.0-15.0) % Eos % (Auto) (0.0-7.0) % Baso % (Auto) (0.0-1.5) % Neut # (Auto) (1.4-5.7) K/uL Lymph # (Auto) (0.6-2.4) K/uL Pacific # (Auto) (0.0-0.8) K/uL Eos # (Auto) (0.0-0.7) K/uL Baso # (Auto) (0.0-0.1) K/uL Nucleated RBC % /100WBC Nucleated RBCs # K/uL INR Lactate (0.20-2.00) mmol/L Sodium (136-148) mmol/L Potassium (3.5-5.1) mmol/L Chloride (98-107) mmol/L Carbon Dioxide (21.0-32.0) mmol/L BUN (7.0-18.0) mg/dL Creatinine (0.8-1.3) mg/dL Est Cr Clr Drug Dosing mL/min Estimated GFR (MDRD) ml/min Glucose (74-106) mg/dL Calcium (8.5-10.1) mg/dL Magnesium (1.8-2.4) mg/dL Total Bilirubin (0.2-1.0) mg/dL Direct Bilirubin (0.0-0.5) mg/dL Indirect Bilirubin AST (15-37) IU/L ALT (14-63) IU/L Alkaline Phosphatase (46-116) U/L Troponin I (0.000-0.056) ng/mL Total Protein (6.4-8.2) g/dL Albumin (3.4-5.0) g/dL Globulin (2.6-4.0) g/dL Albumin/Globulin Ratio (0.9-1.6) Lipase (73-393) U/L Urine Color Urine Appearance Urine pH (5.0-8.0) Ur Specific Hixson (1.001-1.035) Urine Protein (NEGATIVE) mg/dL Urine Glucose (UA) (NEGATIVE) mg/dL Urine Ketones (NEGATIVE) mg/dL Urine Occult Blood (NEGATIVE) Urine Nitrite (NEGATIVE) Urine Bilirubin (NEGATIVE) Urine Urobilinogen (<2.0) EU/dL Ur Leukocyte Esterase (NEGATIVE) SARS-CoV-2 RNA (DEIDRA) NEGATIVE (NEGATIVE) Meds: Medications Generic Name Dose Route Start Last Admin Trade Name Freq PRN Reason Stop Dose Admin Sodium Chloride 10 ml 05/24/20 19:52 Saline Flush FLUSH ASDIRECTED PRN Keep Vein Open Sodium Chloride 2.5 ml 05/24/20 19:52 Saline Flush FLUSH ASDIRECTED PRN Keep Vein Open Discontinued Medications Generic Name Dose Route Start Last Admin Trade Name Genie PRN Reason Stop Dose Admin Fentanyl 50 mcg 05/24/20 20:22 05/24/20 20:40 Fentanyl IVPUSH 05/24/20 20:23 50 mcg ONETIME ONE Administration Lactated Ringer's 1,000 mls @ 999 mls/hr 05/24/20 20:22 05/24/20 20:38 Ringers, Lactated IV 05/24/20 21:22 999 mls/hr .BOLUS ONE Administration Iopamidol 75 ml 05/24/20 21:57 05/24/20 22:00 Isovue Multipack-370 (76%) IVPUSH 05/24/20 21:58 75 ml ONETIME STA Administration Ondansetron HCl 4 mg 05/24/20 20:22 05/24/20 20:38 Zofran IVPUSH 05/24/20 20:23 4 mg ONETIME ONE Administration - Re-Assessments/Exams Free Text/Narrative Re-Assessment/Exam: 05/24/20 22:[address], and feels completely resolved from his symptoms. 05/25/20 00:[address] Oskar Esparza, with information on the ultrasound and CT and his resolvent of symptoms. Dr. Davis recommends having patient follow-up with Dr. Becerra tomorrow morning as he has no pain at this time. After vomiting in CT, he is currently pain free and wants to go home. I performed a repeat exam and did not appreciate new abnormal findings. Patient exhibits normal vital signs. I advised the patient to return to the ER for reevaluation if symptoms worsened, including fever, worsening pain, or any other worrisome symptoms. I instructed the patient to follow up with Dr. Becerra in the morning. MEDICAL DECISION MAKING: I reviewed the patients past medical records, lab and radiographic findings. I discussed the case with the patient. My differential diagnosis included: Pulmonary embolism, pancreatitis, cholelithiasis, acute cholecystitis, bowel obstruction. CT angio chest did not demonstrate pulmonary embolism. His lipase was slightly elevated, however his abdominal pain is completely resolved after vomiting in the CT. Ultrasound did not demonstrate acute cholecystitis. It did demonstrate mild cholelithiasis with moderate sludge with CBD = 7 mm (which is age appropriate), and with his Alk phos and Tbili slightly elevated, Dr. Esparza recommends him following up with Dr. Becerra in the morning. CT demonstrated inflammatory changes in the area of the previous fat-containing periumbilical hernia, likely representing postoperative changes. On external exam there was no erythema or tenderness or drainage worrisome for underlying significant infection. Departure - Departure Time of Disposition: 00:38 Disposition: Home, Self-Care 01 Condition: Good Clinical Impression: Postoperative abdominal pain, Pancreatitis, Biliary colic, Diverticulosis - Discharge Information *PRESCRIPTION DRUG MONITORING PROGRAM REVIEWED*: Not Applicable *COPY OF PRESCRIPTION DRUG MONITORING REPORT IN PATIENT BO: Not Applicable Instructions: Acute Pancreatitis, [id number], Biliary Colic, Adult, Gallbladder Eating Plan, Diverticulosis, Abdominal Pain, Adult, [id number] Referrals: Sharon Becerra MD [Physician] - 05/25/20 Forms: ED Department Discharge Additional Instructions: The need for follow-up, as well as the timing and circumstances, are variable depending upon the specifics of your emergency department visit. If you don't have a primary care physician on staff, we will provide you with a referral. We always advise you to contact your personal physician following an emergency department visit to inform them of the circumstance of the visit and for follow-up with them and/or the need for any referrals to a consulting specialist. The emergency department will also refer you to a specialist when appropriate. This referral assures that you have the opportunity for follow-up care with a specialist. All of these measure are taken in an effort to provide you with optimal care, which includes your follow-up. Under all circumstances we always encourage you to contact your private physician who remains a resource for coordinating your care. When calling for follow-up care, please make the office aware that this follow-up is from your recent emergency room visit. If for any reason you are refused follow-up, please contact the [facility] Emergency Department at and asked to speak to the emergency department charge nurse. If you do not have a primary care doctor, please follow up with the clinics below within 3-5 days. Aftab Allen [facility] - Primary Care [address] [place] [address] [facility] [address] [place] [id number] Sepsis Event Note (ED) - Evaluation Sepsis Screening Result: No Definite Risk - Focused Exam Vital Signs: Vital Signs Temp Pulse Resp BP Pulse Ox 05/24/20 22:36 95 16 135/87 98 05/24/20 19:50 97.8 F 92 18 122/80 92 L - My Orders Last 24 Hours: My Active Orders 05/24/20 19:52 Cardiac Monitoring [RC] . DIRECTED Pulse Oximetry [RC] ASDIRECTED Sodium Chloride 0.9% [Saline Flush] 10 ml FLUSH ASDIRECTED PRN Sodium Chloride 0.9% [Saline Flush] 2.5 ml FLUSH ASDIRECTED PRN Saline Lock Insert [OM.PC] Stat 05/24/20 19:53 EKG Documentation Completion [RC] STAT 05/24/20 20:29 Abdomen Pelvis wo Cont [CT] Stat - Assessment/Plan Last 24 Hours: My Active Orders 05/24/20 19:52 Cardiac Monitoring [RC] . DIRECTED Pulse Oximetry [RC] ASDIRECTED Sodium Chloride 0.9% [Saline Flush] 10 ml FLUSH ASDIRECTED PRN Sodium Chloride 0.9% [Saline Flush] 2.5 ml FLUSH ASDIRECTED PRN Saline Lock Insert [OM.PC] Stat 05/24/20 19:53 EKG Documentation Completion [RC] STAT 05/24/20 20:29 Abdomen Pelvis wo Cont [CT] Stat
[2020-05-24] MEDS ORDERED: Lactated Ringers 1,000 ML IV ONE (20:22)
[2020-05-24] MEDS ORDERED: fentaNYL 50 MCG/ML SDV IVPUSH ONE (20:22)
[2020-05-24] MEDS ORDERED: Ondansetron 4 MG/2 ML SDV IVPUSH ONE (20:22)
[2020-05-24 20:36] LABS: BILIRUBIN INDIRECT 0.5
[2020-05-24 20:38] LABS: BLOOD UREA NITROGEN,BUN 19 mg/dL (7.0-18.0); CARBON DIOXIDE,CO2 28.1 mmol/L (21.0-32.0); CHLORIDE,CL 101 mmol/L (98-107); GLUCOSE RANDOM 141 mg/dL (74-106); LIPASE 488 U/L (73-393); POTASSIUM,K 3.7 mmol/L (3.5-5.1); SODIUM,NA 142 mmol/L (136-148)
[2020-05-24] MEDS ORDERED: Iopamidol 755 MG/ML 500 ML Multipack Bottle IVPUSH STA (21:57)
--- NOTE | 2020-05-24 22:19 | US ---
INDICATION: Upper abdominal pain radiating to the back. Nausea. Umbilical hernia repair 05/09. COMPARISON: CT of the abdomen from earlier today. TECHNIQUE: Ultrasound examination of the right upper quadrant was performed. FINDINGS: There is minimal cholelithiasis, with a single 4 millimeter shadowing dependent calculus in the gallbladder. There is also a moderate amount of dependent sludge in the gallbladder. There is no sign of acute cholecystitis, with no sign of gallbladder wall thickening or pericholecystic fluid. A sonographic Armas sign is not present. The common bile duct is mildly dilated at 7 millimeters mm. The pancreatic head and body were examined, and these are normal in appearance. The abdominal aorta and visualized portions of the inferior vena cava are normal in appearance. The liver shows no sign of mass or contour abnormality, and there is no sign of ascites. The right kidney is unremarkable. IMPRESSION: Mild cholelithiasis and moderate amount of dependent sludge in the gallbladder without acute cholecystitis. Mild dilatation of the common bile duct at 7 millimeters, which is consistent with the patient`s age. No other abnormality seen in the right upper quadrant. Dictated by Reagan Gomez MD @ May 24 2020 10:14PM Signed by Dr. Reagan Gomez @ May 24 2020 10:18PM
--- NOTE | 2020-05-24 22:33 | CT ---
INDICATION: Dyspnea. COMPARISON: None available TECHNIQUE: CT examination of the chest was performed with the uneventful intravenous administration of 75 cc of Isovue 370 while 1 and 3 mm thick axial sections were obtained through the pulmonary arteries. Please note that all CT scans at this facility use dose modulation, iterative reconstruction, and/or weight-based dosing when appropriate to reduce radiation dose to as low as reasonably achievable. FINDINGS: : There is no sign of pulmonary embolism, with normal enhancement and branching of the pulmonary arteries. There is moderate linear atelectasis in the lateral aspect of the lingula at the lung bases. There is moderate linear atelectasis in the posterior right lung base. There is minimal linear atelectasis in the posterior left lung base. There is a noncalcified 4 millimeter noncalcified pleural nodule in the posterior-lateral left lung base on axial image 86 series 402. There is a 4 millimeter noncalcified subpleural nodule in the anterior-lateral right middle lobe on axial image 56 series 402. These nodules can be followed using Fleischner society criteria. There is no sign of mediastinal or hilar mass or adenopathy. The heart is normal in appearance for the patient`s age, as are the aorta and other ascending great vessels. There is no sign of supraclavicular or axillary mass or adenopathy. The visualized superior liver, spleen, pancreas, kidneys, and adrenals are normal in appearance. The gallbladder is now collapsed. It was previously seen to be distended. The osseous structures are normal in appearance for the patient`s age. IMPRESSION: No sign of pulmonary embolism. Moderate linear atelectasis in the inferior lateral lingula at the lung base and in the posterior right lower lobe at the lung base. Additional mild linear atelectasis in the posterior left lung base. Two small pulmonary nodules as described above. These can be followed using placement society criteria. Please note that all CT scans at this facility use dose modulation, iterative reconstruction, and/or weight-based dosing when appropriate to reduce radiation dose to as low as reasonably achievable. Dictated by Reagan Gomez MD @ May 24 2020 10:24PM Signed by Dr. Reagan Gomez @ May 24 2020 10:33PM
--- NOTE | 2020-05-25 11:42 | CT ---
EXAM DATE: 05/24/20 PATIENT'S AGE: 65 Patient: HANNAH ROE Facility: [facility] Site . Site : [id number] Study: CT-Abdomen/Pelvis WO CONT-05/24/2020 8:41:14 PM Ordering Physician: Darius Das Final Report: INDICATION: Bilateral abdominal pain under the ribs. COMPARISON: 04/17/2020 TECHNIQUE: CT examination of the abdomen and pelvis was performed without contrast enhancement using 3 mm thick axial sections from the lung bases through the pubic symphysis. Oral contrast was not administered. Please note that all CT scans at this facility use dose modulation, iterative reconstruction, and/or weight-based dosing when appropriate to reduce radiation dose to as low as reasonably achievable. FINDINGS: In the abdomen, the unenhanced liver remains normal in size and appearance, measuring 17.8 centimeters, previously 17.3 centimeters. The spleen remains mildly enlarged, measuring 12.6 centimeters in length, previously 13.0 centimeters. There is no sign of any splenic mass. The pancreas and adrenals are normal in appearance. The unenhanced kidneys are normal in appearance. The gallbladder is normal in appearance. The abdominal aorta is normal in caliber with no sign of dilatation. There is no sign of retroperitoneal mass or adenopathy. The stomach and loops of small bowel in the abdomen are normal in appearance. Again seen is mild diverticulosis scattered throughout the hepatic and sigmoid flexures. There is no sign of diverticulitis. There is new moderate inflammatory stranding throughout the fat of the previously seen small periumbilical hernia. This could represent infarction of the fat, or could be related to previous surgical repair. I do not see any surgical clips to indicate surgery. Recommend correlation with the clinical history. In the pelvis, the appendix is normal in appearance with no sign of inflammatory process. There is stable prominent sigmoid diverticulosis without evidence of diverticulitis. The loops of small bowel and colon in the pelvis are otherwise normal in appearance. The prostate remains mildly enlarged and is otherwise normal in appearance. The urinary bladder is normal in appearance. There is no sign of pelvic or inguinal mass or adenopathy. Again seen are small bilateral fat containing indirect inguinal hernias. There is no sign of free air or free fluid in the abdomen or pelvis. There is increased mild linear density in the posterior lung bases, right greater than left, consistent with atelectasis. The osseous structures are normal in appearance for the patient`s age. IMPRESSION: CT of the abdomen shows new inflammatory change in the area of the previously seen small fat containing periumbilical hernia. This could represent inflammation of the fat of the hernia or postoperative change. Stable mild diverticulosis of the colon in both the hepatic and splenic flexures. Stable mild splenomegaly. Liver remains normal in appearance. CT of the pelvis shows no change in prominent sigmoid diverticulosis with no sign of diverticulitis. No change in mild enlargement of the prostate. No change in small bilateral fat containing indirect inguinal hernias. Increased mild linear atelectasis in the posterior lung bases. Please note that all CT scans at this facility use dose modulation, iterative reconstruction, and/or weight-based dosing when appropriate to reduce radiation dose to as low as reasonably achievable. Dictated by Reagan Gomez MD @ May 24 2020 9:40PM Signed by: Reagan Gomez MD @05/24/2020 9:51:49 PM (Electronic Signature) Report Signed by Proxy. MTDD
== END 2020-05-25 00:50 | disposition home or self-care (01) ==
LOC: MW.ED 19:39
DX: K85.90 Acute pancreatitis without necrosis or infection, unspecified (principal); K80.50 Calculus of bile duct without cholangitis or cholecystitis without obstruction; K57.30 Diverticulosis of large intestine without perforation or abscess without bleeding; G89.18 Other acute postprocedural pain; E66.9 Obesity, unspecified; Z68.27 Body mass index [BMI] 27.0-27.9, adult; Z20.828 Contact with and (suspected) exposure to other viral communicable diseases; Z88.5 Allergy status to narcotic agent
CPT/HCPCS: 36415; 71275; 74176; 76705; 80053; 81003; 82247; 82248; 83605; 83690; 83735; 84484; 85025; 85610; 87635; 93005; 96374; 96375; 99284; J2405; J3010; J7120; Q9967; 93010; U0002

== ENCOUNTER 2020-06-13 09:12 | Day surgery (SDC) | payer BC ==
[~2020-06-13 09:12] MED LIST changes: +Glycopyrrolate 0.2 MG/ML SDV ONE; +Lidocaine 2% 5 ML SDV ONE; +Midazolam 1 MG/ML 2 ML SDV ONE; +Ondansetron 4 MG/2 ML SDV ONE; +Propofol 200 MG/20 ML SDV ONE; +Rocuronium Bromide 50 MG/5 ML Syringe ONE; +ceFAZolin 2 GM in Premix Bag 1 BAG IV ONE; +fentaNYL 250 MCG/5 ML SDV ONE
[2020-06-13] MEDS ORDERED: Bupivacaine 0.5% 30 ML SDV ONE (09:39)
[2020-06-13] MEDS ORDERED: Octyl 2-Cyanoacrylate 1 Tube ONE (09:39)
[2020-06-13] MEDS ORDERED: Scopolamine 1.5 MG Transdermal Patch ONE ×2 (09:45→09:49)
--- NOTE | 2020-06-13 09:49 | PCM.PREANE ---
Preanesthetic Assessment - Anesthesia/Transfusion/Family Hx Anesthesia History: Prior Anesthesia Without Reaction Other Type of Anesthesia Reaction Comment: Denies any known problems Family History of Anesthesia Reaction: No Transfusion History: No Prior Transfusion(s) Intubation History: Unknown - Review of Systems General: No Symptoms Pulmonary: No Symptoms Cardiovascular: No Symptoms Gastrointestinal: No Symptoms Neurological: No Symptoms Other: Reports: None - Physical Assessment NPO Status Date: 06/12/20 Height: 6 ft 1 in Weight: 107.501 kg ASA Class: 2 Airway Class: Mallampati = 2 Dentition: Reports: Normal Dentition ROM/Head Extension: Full Lungs: Clear to Auscultation, Normal Respiratory Effort Cardiovascular: Regular Rate, Regular Rhythm - Lab Values: Laboratory Last Values SARS-CoV-2 RNA (DEIDRA) NEGATIVE (NEGATIVE) 06/13/20 08:00 - Allergies Allergies/Adverse Reactions: Allergies Allergy/AdvReac Type Severity Reaction Status Date / Time oxycodone Allergy Itching Verified 06/06/20 08:06 - Blood Blood Available: No - Anesthesia Plan Pre-Op Medication Ordered: None - Acknowledgements Anesthesia Type Planned: General Anesthesia Pt an Appropriate Candidate for the Planned Anesthesia: Yes Alternatives and Risks of Anesthesia Discussed w Pt/Guardian: Yes Pt/Guardian Understands and Agrees with Anesthesia Plan: Yes PreAnesthesia Questionnaire HEENT History: Reports: None Cardiovascular History: Reports: High Cholesterol Respiratory History: Reports: None Gastrointestinal History: Reports: Colon Polyp, Diverticulosis, Pancreatitis Other Gastrointestinal History: states has occasional heartburn Genitourinary History: Reports: None Musculoskeletal History: Reports: Osteoarthritis Other Musculoskeletal History: hands Neurological History: Reports: None Psychiatric History: Reports: None Endocrine/Metabolic History: Reports: Obesity/BMI 30+ Hematologic History: Reports: None Immunologic History: Reports: None Oncologic (Cancer) History: Reports: Basal Cell Carcinoma Dermatologic History: Reports: None - Infectious Disease History Infectious Disease History: Reports: Chicken Pox, Measles Other Infectious Disease History: when a child - Past Surgical History Head Surgeries/Procedures: Reports: None HEENT Surgical History: Reports: None Cardiovascular Surgical History: Reports: None Respiratory Surgical History: Reports: None GI Surgical History: Reports: Colonoscopy, Hernia, Abdominal Other GI Surgeries/Procedures: umbilical hernia repair on 05/09/20 Male Surgical History: Reports: Vasectomy Endocrine Surgical History: Reports: None Neurological Surgical History: Reports: None Musculoskeletal Surgical History: Reports: Arthroscopic Knee, Knee Replacement, Shoulder Surgery Other Musculoskeletal Surgeries/Procedures:: right TKA, hx of left RTCR Oncologic Surgical History: Reports: Other (See Below) Other Oncologic Surgeries/Procedures: basal cell removed from face Dermatological Surgical History: Reports: Skin Biopsy - SUBSTANCE USE Tobacco Use Status *Q: Never Tobacco User Recreational Drug Use History: No - HOME MEDS Home Medications: Home Meds Simvastatin [Zocor] 40 mg PO BEDTIME 11/30/13 [History] Cyclobenzaprine [Flexeril] 5 mg PO BID PRN #20 tablet 05/09/20 [Rx] - CURRENT (IN HOUSE) MEDS Current Meds: Current Medications Lactated Ringer's (Ringers, Lactated) 1,000 mls @ 125 mls/hr IV ASDIRECTED SADA Sodium Chloride (Saline Flush) 2.5 ml FLUSH ASDIRECTED PRN PRN Reason: Keep Vein Open Sodium Chloride (Normal Saline) 10 ml IV ASDIRECTED PRN PRN Reason: IV Use Sodium Chloride (Saline Flush) 10 ml FLUSH ASDIRECTED PRN PRN Reason: Keep Vein Open Discontinued Medications Bupivacaine HCl (Marcaine 0.5%) Confirm Administered Dose 30 ml .ROUTE .STK-MED ONE Stop: 06/13/20 09:40 Fentanyl (Sublimaze) Confirm Administered Dose 250 mcg .ROUTE .STK-MED ONE Stop: 06/13/20 08:39 Glycopyrrolate (Robinul) Confirm Administered Dose 0.4 mg .ROUTE .STK-MED ONE Stop: 06/13/20 08:39 Cefazolin Sodium/Dextrose 2 gm (/ Premix) 50 mls @ 100 mls/hr IV ONETIME ONE Stop: 06/12/20 08:52 Lidocaine (Xylocaine-Mpf 2%) Confirm Administered Dose 5 ml .ROUTE .STK-MED ONE Stop: 06/13/20 08:39 Midazolam HCl (Versed 1 Mg/Ml) Confirm Administered Dose 2 mg .ROUTE .STK-MED ONE Stop: 06/13/20 08:39 Octyl Cyanoacrylate (Dermabond Advance) Confirm Administered Dose 1 applic .ROUTE .STK-MED ONE Stop: 06/13/20 09:40 Ondansetron HCl (Zofran) Confirm Administered Dose 4 mg .ROUTE .STK-MED ONE Stop: 06/13/20 08:39 Propofol (Diprivan 20 Ml) Confirm Administered Dose 200 mg .ROUTE .STK-MED ONE Stop: 06/13/20 08:39 Rocuronium Clyde (Rocuronium Clyde) Confirm Administered Dose 50 mg .ROUTE .STK-MED ONE Stop: 06/13/20 08:39 Scopolamine (Transderm-Scop) Confirm Administered Dose 1.5 mg .ROUTE .STK-MED ONE Stop: 06/13/20 09:46
[2020-06-13] MEDS ORDERED: Sodium Chloride 0.9% 20 ML ONE (10:13)
[2020-06-13] MEDS ORDERED: ceFAZolin 1 GM Vial ONE (10:13)
[2020-06-13] MEDS ORDERED: ePHEDrine 50 MG/ML SDV ONE (10:13)
[2020-06-13] MEDS ORDERED: fentaNYL 100 MCG/2 ML SDV ONE (11:06)
[2020-06-13] MEDS ORDERED: Glycopyrrolate 0.2 MG/ML SDV ONE (11:27)
[2020-06-13] MEDS ORDERED: Atropine 0.1 MG/ML 10 ML Syringe IVPUSH PRN ×2 (11:34)
[2020-06-13] MEDS ORDERED: 50% Dextrose in Water 50 ML Syringe IVPUSH PRN (11:34)
[2020-06-13] MEDS ORDERED: EPINEPHrine 1:10,000 1 MG/10 ML Syringe IVPUSH PRN (11:34)
[2020-06-13] MEDS ORDERED: Albuterol 0.083% 2.5 MG/3 ML Neb Soln NEB PRN (11:34)
[2020-06-13] MEDS ORDERED: fentaNYL 100 MCG/2 ML SDV IVPUSH PRN (11:34)
[2020-06-13] MEDS ORDERED: Naloxone 0.4 MG/ML Syringe IVPUSH PRN (11:34)
--- NOTE | 2020-06-13 11:49 | PCM.OPNOTE ---
- General Post-Op/Procedure Note Date of Surgery/Procedure: 06/13/20 Operative Procedure(s): Laparoscopic cholecystectomy Findings: Well scarred in mesh around the umbilicus. Slightly distended gallbladder containing gallstones in the neck Pre Op Diagnosis: Symptomatic cholelithiasis Post-Op Diagnosis: same Anesthesia Technique: General ET Tube Primary Surgeon: Sharon Becerra Fluid Replacement, Intraop: 1,500 Output, Urine Amount: 50 EBL in mLs: 10 Condition: Good
[2020-06-13] MEDS ORDERED: Acetaminophen/HYDROcodone 325-5 MG Tab PO PRN (11:51)
[2020-06-13] MEDS ORDERED: Scopolamine 1.5 MG Transdermal Patch TOP ONE (12:11)
--- NOTE | 2020-06-13 12:14 | PCM.POSTAN ---
POST ANESTHESIA ASSESSMENT - MENTAL STATUS Mental Status: Alert, Oriented - VITAL SIGNS Vital Signs: Last Vital Signs Temp 97.9 F 06/13/20 11:40 Pulse 96 06/13/20 12:10 Resp 13 06/13/20 12:10 BP 134/83 06/13/20 12:10 Pulse Ox 92 L 06/13/20 12:10 - RESPIRATORY Respiratory Status: Respiratory Rate WNL, Airway Patent, O2 Saturation Stable - CARDIOVASCULAR CV Status: Pulse Rate WNL, Blood Pressure Stable - GASTROINTESTINAL GI Status: No Symptoms - PAIN Pain Score: 0 - POST OP HYDRATION Hydration Status: Adequate & Stable
--- NOTE | 2020-06-13 12:37 | OR ---
SURGEON: SHARON BECERRA MD DATE OF PROCEDURE: 06/13/2020 PREOPERATIVE DIAGNOSIS: Symptomatic cholelithiasis. POSTOPERATIVE DIAGNOSIS: Symptomatic cholelithiasis. PROCEDURE PERFORMED: Laparoscopic cholecystectomy. PRIMARY SURGEON: Sharon Becerra MD ANESTHESIA: General endotracheal anesthesia. FLUIDS: 1500 mL of crystalloid. ESTIMATED BLOOD LOSS: 10 mL. URINE OUTPUT: 50 mL. FINDINGS: Well-scarred in periumbilical mesh. Gallbladder appeared slightly distended. Palpable gallstones within the neck of the gallbladder. COMPLICATIONS: None. INDICATIONS: The patient is a 65-year-old male who presented to the ER 2 weeks ago with nausea, epigastric pain, and diaphoresis. While in the waiting room of the ER, the patient's symptoms resolved. However, he underwent a workup for this. He was found to have elevated liver function tests, and right upper quadrant ultrasound revealed cholelithiasis. He came to see me in clinic. His liver function tests were improving. His bilirubin had gone back to normal. An MRCP showed evidence of cholelithiasis but no signs of choledocholithiasis. The patient and I discussed the need for cholecystectomy. I explained the laparoscopic approach. I will attempt this but convert to open should I be unable to perform it safely. The patient had a mesh placed for a periumbilical hernia 1 month ago. I explained the risks of the procedure including bleeding, infection, or damage to surrounding structures including damage to the mesh or mesh infection. The patient verbalized understanding and wishes to proceed. PROCEDURE IN DETAIL: The patient was brought to the OR and placed on the OR table in supine position. A time-out was completed verifying the patient's name, age, date of , allergies, and procedure to be performed. General endotracheal anesthesia was induced. The left arm was tucked to the patient's side, and a Lemus catheter placed. The abdomen was prepped and draped in usual standard fashion. I anesthetized an area 2 fingerbreadths below the left subcostal margin in the midclavicular line with 0.5% Marcaine plain. A 1 cm incision was made using an 11 blade. A 5 mm optical trocar was used to gain entry into the abdomen in the left upper quadrant. All layers of the abdominal wall were visualized upon entry. The abdomen was insufflated, and I inserted a 5 mm 30-degree scope into the abdomen. I inspected the area underneath my initial trocar placement. No damage to surrounding structures was noted. I turned my attention to the midline. The patient's surgical mesh appeared to be well scarred in and was covered with omentum. I went just to the right and lateral to this. A 5 mm trocar was placed under direct visualization taking care to avoid the mesh. I then switched my 5 mm 30-degree scope to this position. I then placed 2 more 5 mm trocars in the following locations under direct visualization; one in the right flank and one 2 fingerbreadths below the right subcostal margin in the midclavicular line. The dome of the gallbladder was grasped and elevated anteriorly. I grasped the infundibulum, began my dissection along the proximal half of the gallbladder. The area was covered in a thick layer of fat. I identified the node of Calot and continued my dissection around this area. I cleared away all of the surrounding tissue and identified the cystic duct and cystic artery. I then began to clear away the proximal one-third of the cystic plate. The patient did have some adhesions consistent with chronic cholecystitis. Once my critical view was achieved, a photograph was taken. I doubly clipped and ligated the cystic duct and artery. Then, using hook cautery, I carried my dissection from proximal to distal along the cystic plate. Once the gallbladder was freed from the liver bed, I then upsized my 5 mm trocar just to the right of the umbilicus to a 12 mm trocar. The gallbladder was placed in an Endo Catch bag and removed through this port site. The 12 mm trocar was replaced, and I inspected my operative field. There was no evidence of biliary drainage, and the area was hemostatic. I irrigated the area with 500 mL of normal saline, which was suctioned out. I then closed my 12 mm port site with interrupted 0 Vicryl suture using a Derek-Stephanie device. I then removed my 5 mm trocars under direct visualization and allowed the abdomen to desufflate. The subcutaneous fat layer at the 12 mm trocar site was closed with interrupted layers of 3-0 Vicryl suture. The skin was closed with a running 4-0 Monocryl stitch. The 5 mm trocar sites were closed with interrupted 4-0 Monocryl sutures. Dermabond and sterile dressings were applied. The patient tolerated the procedure well and was transferred to the PACU in stable condition. All counts were complete and correct at the end of the case. CORONA ROBLEDO /[id number]
--- NOTE | 2020-06-13 13:48 | PCM48HPAN ---
Post Anesthesia Note - EVALUATION WITHIN 48HRS OF ANESTHETIC Vital Signs in Normal Range: Yes Patient Participated in Evaluation: Yes Respiratory Function Stable: Yes Airway Patent: Yes Cardiovascular Function Stable: Yes Hydration Status Stable: Yes Pain Control Satisfactory: Yes Nausea and Vomiting Control Satisfactory: Yes Mental Status Recovered: Yes Vital Signs: Last Vital Signs Temp 98.2 F 06/13/20 12:15 Pulse 83 06/13/20 12:45 Resp 15 06/13/20 12:45 BP 124/76 06/13/20 12:45 Pulse Ox 95 06/13/20 12:45
== END 2020-06-13 14:25 | disposition home or self-care (01) ==
LOC: MW.SDS 09:12
PROVIDERS: ATTEND Surgery
DX: K80.10 Calculus of gallbladder with chronic cholecystitis without obstruction (principal); Z01.812 Encounter for preprocedural laboratory examination; Z20.828 Contact with and (suspected) exposure to other viral communicable diseases; E78.00 Pure hypercholesterolemia, unspecified; E66.9 Obesity, unspecified; Z68.31 Body mass index [BMI] 31.0-31.9, adult; Z88.5 Allergy status to narcotic agent
CPT/HCPCS: 47562; 87635; 88304; A9270; J0690; J2001; J2250; J2405; J2704; J3010; J3490; J7120; 00790; U0002

== ENCOUNTER 2021-01-30 08:57 | Day surgery (SDC) | payer BC ==
[~2021-01-30 08:57] MED LIST changes: -Glycopyrrolate 0.2 MG/ML SDV ONE; -Lidocaine 2% 5 ML SDV ONE; -Midazolam 1 MG/ML 2 ML SDV ONE; -Ondansetron 4 MG/2 ML SDV ONE; -Propofol 200 MG/20 ML SDV ONE; -Rocuronium Bromide 50 MG/5 ML Syringe ONE; -ceFAZolin 2 GM in Premix Bag 1 BAG IV ONE; -fentaNYL 250 MCG/5 ML SDV ONE
[2021-01-30] MEDS ORDERED: Propofol 200 MG/20 ML SDV ONE ×2 (09:16→10:18)
[2021-01-30] MEDS ORDERED: fentaNYL 100 MCG/2 ML SDV ONE (09:16)
--- NOTE | 2021-01-30 09:41 | PCM.PREANE ---
Preanesthetic Assessment - Procedure Proposed Procedure: Colonoscopy - Anesthesia/Transfusion/Family Hx Anesthesia History: Prior Anesthesia Without Reaction Other Type of Anesthesia Reaction Comment: Denies any known problems Transfusion History: No Prior Transfusion(s) Intubation History: Unknown - Review of Systems General: No Symptoms Pulmonary: No Symptoms Cardiovascular: No Symptoms (HLD) Gastrointestinal: No Symptoms (h/o Polyps) Neurological: No Symptoms Other: Reports: None (h/o depression) - Physical Assessment NPO Status Date: 01/28/21 NPO Status Time: 19:00 Height: 6 ft Weight: 109.316 kg (Obesity) ASA Class: 2 Mental Status: Alert & Oriented x3 Airway Class: Mallampati = 2 Dentition: Reports: Normal Dentition ROM/Head Extension: Full Lungs: Clear to Auscultation, Normal Respiratory Effort Cardiovascular: Regular Rate, Regular Rhythm - Allergies Allergies/Adverse Reactions: Allergies Allergy/AdvReac Type Severity Reaction Status Date / Time oxycodone Allergy Itching Verified 01/25/21 10:55 - Acknowledgements Anesthesia Type Planned: General Anesthesia Pt an Appropriate Candidate for the Planned Anesthesia: Yes Alternatives and Risks of Anesthesia Discussed w Pt/Guardian: Yes Pt/Guardian Understands and Agrees with Anesthesia Plan: Yes PreAnesthesia Questionnaire HEENT History: Reports: None Cardiovascular History: Reports: High Cholesterol Respiratory History: Reports: None Gastrointestinal History: Reports: Colon Polyp, Diverticulosis, Pancreatitis Other Gastrointestinal History: states has occasional heartburn Genitourinary History: Reports: None Musculoskeletal History: Reports: Osteoarthritis Neurological History: Reports: None Psychiatric History: Reports: None Endocrine/Metabolic History: Reports: Obesity/BMI 30+ Hematologic History: Reports: None Immunologic History: Reports: None Oncologic (Cancer) History: Reports: Basal Cell Carcinoma Dermatologic History: Reports: None - Infectious Disease History Infectious Disease History: Reports: Chicken Pox, Measles Other Infectious Disease History: when a child - Past Surgical History Head Surgeries/Procedures: Reports: None HEENT Surgical History: Reports: None Cardiovascular Surgical History: Reports: None Respiratory Surgical History: Reports: None GI Surgical History: Reports: Cholecystectomy, Colonoscopy, Hernia, Abdominal Other GI Surgeries/Procedures: umbilical hernia repair on 05/09/20 Male Surgical History: Reports: Vasectomy Endocrine Surgical History: Reports: None Neurological Surgical History: Reports: None Musculoskeletal Surgical History: Reports: Arthroscopic Knee, Knee Replacement, Shoulder Surgery Other Musculoskeletal Surgeries/Procedures:: right TKA, hx of left RTCR/labrum Oncologic Surgical History: Reports: Other (See Below) Other Oncologic Surgeries/Procedures: basal cell removed from face Dermatological Surgical History: Reports: None, Skin Biopsy - SUBSTANCE USE Tobacco Use Status *Q: Never Tobacco User Recreational Drug Use History: No - HOME MEDS Home Medications: Home Meds Simvastatin [Zocor] 40 mg PO BEDTIME 11/30/13 [History] - CURRENT (IN HOUSE) MEDS Current Meds: Current Medications Lactated Ringer's (Ringers, Lactated) 1,000 mls @ 125 mls/hr IV ASDIRECTED SADA Last Admin: 01/30/21 09:35 Dose: 125 mls/hr Documented by: Sodium Chloride (Sodium Chloride 0.9% 10 Ml Syringe) 10 ml FLUSH ASDIRECTED PRN PRN Reason: Keep Vein Open Sodium Chloride (Sodium Chloride 0.9% 2.5 Ml Syringe) 2.5 ml FLUSH ASDIRECTED PRN PRN Reason: Keep Vein Open Sodium Chloride (Sodium Chloride 0.9% 10 Ml Syringe) 10 ml FLUSH ASDIRECTED PRN PRN Reason: Keep Vein Open Sodium Chloride (Sodium Chloride 0.9% 2.5 Ml Syringe) 2.5 ml FLUSH ASDIRECTED PRN PRN Reason: Keep Vein Open Sodium Chloride (Sodium Chloride 0.9% 10 Ml Sdv) 10 ml IV ASDIRECTED PRN PRN Reason: IV Use Discontinued Medications Fentanyl (Fentanyl 100 Mcg/2 Ml Sdv) Confirm Administered Dose 100 mcg .ROUTE .STK-MED ONE Stop: 01/30/21 09:17 Lidocaine HCl (Lidocaine 1% 5 Ml Sdv) Confirm Administered Dose 5 ml .ROUTE .STK-MED ONE Stop: 01/30/21 09:16 Propofol (Propofol 200 Mg/20 Ml Sdv) Confirm Administered Dose 400 mg .ROUTE .STK-MED ONE Stop: 01/30/21 09:17
--- NOTE | 2021-01-30 10:50 | PCM.OPNOTE ---
- General Post-Op/Procedure Note Date of Surgery/Procedure: 01/30/21 Operative Procedure(s): Diagnostic colonoscopy with polypectomy Findings: ascending colon polyp, transverse colon polyp x 2, sigmoid colon polyp x 3, diverticulosis Pre Op Diagnosis: History of colon polyps Post-Op Diagnosis: ascending colon polyp, transverse colon polyp x 2, sigmoid colon polyp x 3, diverticulosis Anesthesia Technique: [facility] [place] Primary Surgeon: Sharon Becerra Condition: Good
--- NOTE | 2021-01-30 11:01 | PCM.POSTAN ---
POST ANESTHESIA ASSESSMENT - MENTAL STATUS Mental Status: Alert, Oriented - VITAL SIGNS Vital Signs: Last Vital Signs Temp 97.2 F 01/30/21 09:15 Pulse 84 01/30/21 09:15 Resp 16 01/30/21 09:15 BP 134/95 H 01/30/21 09:15 Pulse Ox 94 L 01/30/21 09:15 - RESPIRATORY Respiratory Status: Respiratory Rate WNL, Airway Patent, O2 Saturation Stable - CARDIOVASCULAR CV Status: Pulse Rate WNL, Blood Pressure Stable - GASTROINTESTINAL GI Status: No Symptoms - PAIN Pain Score: 0 - POST OP HYDRATION Hydration Status: Adequate & Stable
--- NOTE | 2021-01-30 11:04 | PCM48HPAN ---
Post Anesthesia Note - EVALUATION WITHIN 48HRS OF ANESTHETIC Vital Signs in Normal Range: Yes Patient Participated in Evaluation: Yes Respiratory Function Stable: Yes Airway Patent: Yes Cardiovascular Function Stable: Yes Hydration Status Stable: Yes Pain Control Satisfactory: Yes Nausea and Vomiting Control Satisfactory: Yes Mental Status Recovered: Yes Vital Signs: Last Vital Signs Temp 97.2 F 01/30/21 09:15 Pulse 72 01/30/21 11:02 Resp 10 L 01/30/21 11:02 BP 104/71 01/30/21 11:02 Pulse Ox 92 L 01/30/21 11:02 - COMMENTS/OBSERVATIONS Free Text/Narrative:: Pt doing well post-op. VSS. No apparent anesthetic complications. Dr. Ari Cabrera
--- NOTE | 2021-01-30 15:05 | OR ---
SURGEON: SHARON BECERRA MD DATE OF PROCEDURE: 01/30/2021 PREOPERATIVE DIAGNOSIS: History of colon polyps. POSTOPERATIVE DIAGNOSES: 1. Ascending colon polyp. 2. Transverse colon polyps x2. 3. Sigmoid colon polyps x3. 4. Diverticulosis. PROCEDURE PERFORMED: Diagnostic colonoscopy with polypectomy. PRIMARY SURGEON: Sharon Becerra MD ANESTHESIA: MAC. INSTRUMENT USED: Olympus colonoscope. EXTENT OF EXAM: To the cecum. PREPARATION: Good. LIMITATIONS: None. INDICATIONS FOR EXAMINATION: The patient is a 65-year-old male who presents for a one-year repeat colonoscopy. Last year, I performed a colonoscopy and saw multiple polyps, one of which was large and sessile. To ensure that I had removed all of this polyp, the decision was made to repeat his colonoscopy in one year. I explained the procedure, expected perioperative course, and the risks. He verbalized understanding and wishes to proceed. PROCEDURE IN DETAIL: The patient was brought in to the endoscopy suite and placed in a left lateral decubitus position. A time-out was completed verifying the patient's name, age, date of , allergies, and procedure to be performed. Monitored anesthesia care was induced and continuous oxygen was provided via nasal cannula throughout the procedure. After adequate sedation was achieved, a digital rectal exam was performed. This exam was within normal limits. A well-lubricated colonoscope was inserted into the rectum and advanced under direct visualization to the level of the cecum. The cecum was identified by both visual and anatomic landmarks. A photograph was taken of the cecal cap; however, I was unable to retroflex the scope within the cecum due to looping of the scope more proximally. The scope was then fully withdrawn while examining the color, texture, anatomy, and integrity of the mucosa from the cecum to the anal canal. The patient was found have a small sessile ascending colon polyp which was removed in piecemeal fashion using a cold biopsy forceps. The patient was found to have a transverse colon polyp that was similar in nature, removed in the same way. Along the middle portion of the transverse colon, I noticed the ink from the patient's previously marked polyp. Just along the side of this was a small sessile area of polyp growth. This was removed in its entirety in piecemeal fashion using a cold biopsy forceps. This was sent to Pathology labeled as transverse colon polyp #2. In the mid sigmoid colon, the patient had a sessile polyp that was removed in piecemeal fashion using a cold biopsy forceps. In the very distal sigmoid colon just before the rectum, the patient had two pedunculated appearing polyps. Both were removed using a hot snare. They were sent to Pathology labeled as sigmoid colon polyp #2 and #3. The scope was then brought into the rectum and retroflexed to allow visualization of the anal canal opening. This appeared normal and a photograph was taken. The scope was then straightened out and fully withdrawn. The cecum to anus time was 30 minutes. The patient tolerated the procedure well and was transferred to the PACU in stable condition. ENDOSCOPIC DIAGNOSES: 1. Ascending colon polyp. 2. Transverse colon polyps x2. 3. Sigmoid colon polyps x3. 4. Diverticulosis. RECOMMENDATION: Follow up in clinic in two weeks. CORONA ROBLEDO /[id number]
== END 2021-01-30 11:32 | disposition home or self-care (01) ==
LOC: MW.SDS 08:57
PROVIDERS: ATTEND Surgery
DX: Z12.11 Encounter for screening for malignant neoplasm of colon (principal); D12.2 Benign neoplasm of ascending colon; D12.3 Benign neoplasm of transverse colon; D12.4 Benign neoplasm of descending colon; D12.5 Benign neoplasm of sigmoid colon; K57.30 Diverticulosis of large intestine without perforation or abscess without bleeding; E78.00 Pure hypercholesterolemia, unspecified; E66.9 Obesity, unspecified; Z88.5 Allergy status to narcotic agent; Z79.899 Other long term (current) drug therapy; Z98.890 Other specified postprocedural states; Z68.32 Body mass index [BMI] 32.0-32.9, adult
CPT/HCPCS: 45380; 45385; J2704; J3010; J7120; 00812; 88305

== ENCOUNTER 2022-02-22 07:30 | Day surgery (SDC) | payer BC ==
[~2022-02-22 07:30] MED LIST changes: +Propofol 200 MG/20 ML SDV ONE; -Sodium Chloride 0.9% 10 ML SDV IV PRN; +Sodium Chloride 0.9% 20 ML SDV IV PRN
[2022-02-22] MEDS ORDERED: Propofol 200 MG/20 ML SDV ONE (09:27)
== END 2022-02-22 10:03 | disposition home or self-care (01) ==
LOC: MW.SDS 07:30
PROVIDERS: ATTEND Surgery
DX: Z12.11 Encounter for screening for malignant neoplasm of colon (principal); D12.2 Benign neoplasm of ascending colon; D12.3 Benign neoplasm of transverse colon; K57.30 Diverticulosis of large intestine without perforation or abscess without bleeding; F32.A Depression, unspecified; E78.00 Pure hypercholesterolemia, unspecified; K21.9 Gastro-esophageal reflux disease without esophagitis; E66.9 Obesity, unspecified; Z86.010 Personal history of colon polyps; Z88.5 Allergy status to narcotic agent; Z79.899 Other long term (current) drug therapy; Z98.890 Other specified postprocedural states; Z68.32 Body mass index [BMI] 32.0-32.9, adult
CPT/HCPCS: 45380; J2704; J7120; 00812

== ENCOUNTER 2025-02-01 08:42 | Day surgery (SDC) | payer MEDICAID, MEDICARE ==
[~2025-02-01 08:42] MED LIST changes: -Lactated Ringers 1,000 ML IV SCH; -Propofol 200 MG/20 ML SDV ONE; -Sodium Chloride 0.9% 20 ML SDV IV PRN
[2025-02-01] MEDS: Lactated Ringers 1,000 ML IV SCH (09:28)
[2025-02-01] MEDS ORDERED: Propofol 200 MG/20 ML SDV ONE (11:00)
== END 2025-02-01 11:50 | disposition home or self-care (01) ==
LOC: MW.SDS 08:42
PROVIDERS: ATTEND Surgery
DX: Z12.11 Encounter for screening for malignant neoplasm of colon (principal); D12.5 Benign neoplasm of sigmoid colon; D12.3 Benign neoplasm of transverse colon; K57.30 Diverticulosis of large intestine without perforation or abscess without bleeding; E78.00 Pure hypercholesterolemia, unspecified; Z88.6 Allergy status to analgesic agent; Z79.899 Other long term (current) drug therapy
CPT/HCPCS: 45380; 88305; J2003; J2704; J7120; 00811